=== PATIENT | female | born 1955 | race Caucasian/White ===

== ENCOUNTER → 2019-02-11 | Outpatient (CLI) | payer BC ==
[~2019-02-11] MED LIST: CALC-80 PO; EST.625T PO; HYDR-3454 PO; LISI20TA PO; OMEG1CAP51 PO; PHEN-452 PO
[2019-02-11 09:41] LABS: BASOPHILS # (AUTO) 0.1 10^3/uL (0.0-0.1); BASOPHILS % (AUTO) 1 % (0-10); EOSINOPHILS # (AUTO) 0.1 10^3/uL (0.0-0.3); EOSINOPHILS % (AUTO) 1 % (0-10); HEMATOCRIT 43 % (35-52); HEMOGLOBIN 14.5 G/DL (11.5-16.0); LYMPHOCYTES # (AUTO) 1.6 X 10^3 (1.0-4.0); LYMPHOCYTES % (AUTO) 23 % (12-44); MEAN CORPUSCULAR HEMOGLOBIN 31 PG (25-34); MEAN CORPUSCULAR HGB CONC 34 G/DL (32-36); MEAN CORPUSCULAR VOLUME 92 FL (80-99); MEAN PLATELET VOLUME 9.8 FL (7.4-10.4); MONOCYTES # (AUTO) 0.4 X 10^3 (0.0-1.0); MONOCYTES % (AUTO) 6 % (0-12); NEUTROPHILS # (AUTO) 4.6 X 10^3 (1.8-7.8); NEUTROPHILS % (AUTO) 68 % (42-75); PLATELET COUNT 303 10^3/uL (130-400); RED CELL DISTRIBUTION WIDTH 13.4 % (10.0-14.5); WHITE BLOOD COUNT 6.7 10^3/uL (4.3-11.0)
[2019-02-11 10:07] LABS: ALANINE AMINOTRANSFERASE 23 U/L (0-55); ALBUMIN 4.5 GM/DL (3.2-4.5); ALKALINE PHOSPHATASE 72 U/L (40-136); BILIRUBIN,TOTAL 0.5 MG/DL (0.1-1.0); BUN/CREATININE RATIO 18; CALCIUM 9.7 MG/DL (8.5-10.1); CARBON DIOXIDE 22 MMOL/L (21-32); CHLORIDE 111 MMOL/L (98-107); CHOLESTEROL 293 MG/DL (< 200); GFR ESTIMATED > 60; GLUCOSE 96 MG/DL (70-105); HDL CHOLESTEROL 65 MG/DL (40-60); POTASSIUM 4.1 MMOL/L (3.6-5.0); SODIUM 142 MMOL/L (135-145); TOTAL PROTEIN 7.2 GM/DL (6.4-8.2); TRIGLYCERIDES 118 MG/DL (<150); VLDL CHOLESTEROL 24 MG/DL (5-40)
--- NOTE | 2019-02-14 19:01 | Diagnostic Imaging Report ---
INDICATION: Routine screening. Comparison is made with prior mammograms from 05/25/2017 and 07/28/2015. 2-D and 3-D bilateral screening mammography was performed with Computer-Aided Detection (CAD) system. FINDINGS: Both breasts remain heterogeneously dense, limiting the sensitivity of mammography. No mass or malignant-appearing microcalcifications are seen. There are benign calcifications bilaterally. A marker clip in the upper-outer left breast is again noted. The axillae are unremarkable. IMPRESSION: No mammographic features suspicious for malignancy are identified. ACR BI-RADS Category 2: Benign findings. Result letter will be mailed to the patient. Note: At least 10% of breast cancer is not imaged by mammography. Dictated on workstation # [id number]
== END ==
LOC: RAD 09:01
PROVIDERS: ATTEND Internal Medicine
DX: Z12.31 Encounter for screening mammogram for malignant neoplasm of breast (principal); I10 Essential (primary) hypertension; R73.09 Other abnormal glucose
CPT/HCPCS: 36415; 77067; 80053; 80061; 83036; 84443; 85025

== ENCOUNTER → 2021-02-05 | Outpatient (CLI) | payer BC, MEDICARE | LOC: CARD 13:00 | PROVIDERS: ATTEND Nurse Practitioner Family | DX: I08.0 Rheumatic disorders of both mitral and aortic valves (principal) | CPT/HCPCS: 93306 ==

== ENCOUNTER 2021-11-15 05:32 | Outpatient (CLI) | payer BC ==
[~2021-11-15] VITALS: Ht 167.6 cm; Wt 73.8 kg
[2021-11-15] MEDS ORDERED: CETI10CA PO (11:15)
[2021-11-15] MEDS ORDERED: MULT-1136 PO (11:15)
[2021-11-15] MEDS ORDERED: ATOR40TA70 PO (11:15)
[2021-11-15] MEDS ORDERED: CALC-903 PO (11:15)
[2021-11-15] MEDS ORDERED: LOSA100T57 PO (11:15)
== END 2021-11-15 14:27 | disposition home or self-care (01) ==
LOC: PREOP 05:32
PROVIDERS: ATTEND Surgery
DX: Z01.818 Encounter for other preprocedural examination (principal)

== ENCOUNTER 2021-11-22 06:50 | Day surgery (SDC) | payer BC ==
[~2021-11-22] VITALS: Ht 167.6 cm; Wt 73.8 kg
[~2021-11-22 06:50] MED LIST changes: +ATOR40TA70 PO; +CALC-903 PO; +CETI10CA PO; +LOSA100T57 PO; +MULT-1136 PO
[2021-11-22] MEDS ORDERED: LACTATED RINGERS 1,000 ML IV STA (07:02)
[2021-11-22] MEDS ORDERED: MIDAZOLAM 2 MG/2 ML (VERSED) VIAL ONE (07:06)
[2021-11-22] MEDS ORDERED: PROPOFOL INJECTION 50 ML IV ONE (07:06)
[2021-11-22] MEDS ORDERED: LACTATED RINGERS 1,000 ML IV ONE (07:08)
[2021-11-22 07:18] VITALS: BP 135/74
[2021-11-22 08:45] VITALS: BP 86/48
[2021-11-22 08:50] VITALS: BP 95/51
[2021-11-22 09:20] VITALS: BP 127/78
--- NOTE | 2021-11-22 09:36 | Progress Note-Post Operative ---
Post-Operative Progess Note Surgeon (s)/Director Data Analytics (s) Surgeon ANN RUBIO DO Director Data Analytics: CHERYL Clark Pre-Operative Diagnosis screening colonoscopy Post-Operative Diagnosis polyp diverticula int hemorrhoid Procedure & Operative Findings Date of Procedure 11/22/21 Procedure Performed/Findings Colonoscopy with snare polypectomy PROCEDURE NOTE: After informed consent was obtained, the patient was brought to the endoscopy suite, placed in bed in left lateral decubitus position. She was administered IV sedation by the LUMBER SORTER MACHINE who then monitored her vitals the entire time, heart rate, blood pressure and pulse ox and the scope was inserted, pushed all the way to about 140 cm and pushed into the cecum. Took a picture of appendiceal orifice and then slowly withdrew the scope insufflating to look circumferentially at the riley; starting in the cecum and up the ascending colon. Just outside the cecum in the ascending colon found a polyp and elected to remove it completely with snare. Then continued up to the hepatic flexure, down the transverse colon to the splenic flexure. Into the descending colon where another polyp was seen and taken with snare. Continued down into the sigmoid where 2 more polyps were seen and removed. Finally into the rectal vault and retroflexed the scope. Took picture of the internal hemorrhoids. The patient tolerated the procedure. She was recovered in endoscopy suite. Anesthesia Type IV sedation by LUMBER SORTER MACHINE Estimated Blood Loss Estimated blood loss (mL): scant Specimens/Packing Specimens Removed asc polyp desc polyp sigmoid polyp x 2 ANN RUBIO DO Nov 22, 2021 09:36
--- NOTE | 2021-11-22 09:36 | Endoscopy Discharge Instruct ---
Endo Procedure/Findings Findings 1.: Polyp 2.: Diverticulosis 3.: Internal Hemorrhoids Discharge Instructions - Activity: You might feel a little sleepy until tomorrow. This is due to the medicine you received to relax you. Until tomorrow, you should: NOT drive a car, operate machinery or power tools. NOT drink any alcoholic beverages. NOT make any important decisions or sign importortant papers. Do not return to work until tomorrow, unless otherwise instructed. Resume previous activities tomorrow. Diet: Start by taking liquids. If you tolerate liquids, advance to solid food. 1.: Colonscopy in 3 years Notify Physician - If you experience excessive bleeding, unusual abdominal pain, fever, or chest pain, contact your doctor immediately. ANN RUBIO DO Nov 22, 2021 09:36
[2021-11-22 09:53] VITALS: BP 127/78
--- NOTE | 2021-11-22 10:26 | Anesthesia-General Post-Op ---
MAC Patient Condition Mental Status/LOC: Same as Preop Cardiovascular: Satisfactory Nausea/Vomiting: Absent Respiratory: Satisfactory Pain: Controlled Complications: Absent Post Op Complications Complications None Follow Up Care/Instructions Patient Instructions None needed. Anesthesiology Discharge Order Discharge Order Patient is doing well, no complaints, stable vital signs, no apparent adverse anesthesia problems. No complications reported per nursing. KELLY MEZA CRNA Nov 22, 2021 10:26
== END 2021-11-22 09:45 | disposition home or self-care (01) ==
LOC: ENDO 06:50
PROVIDERS: ATTEND Surgery
DX: Z12.11 Encounter for screening for malignant neoplasm of colon (principal); K63.5 Polyp of colon; D12.2 Benign neoplasm of ascending colon; D12.4 Benign neoplasm of descending colon; K57.30 Diverticulosis of large intestine without perforation or abscess without bleeding; K64.8 Other hemorrhoids; I10 Essential (primary) hypertension; E78.5 Hyperlipidemia, unspecified; F17.210 Nicotine dependence, cigarettes, uncomplicated; Z90.49 Acquired absence of other specified parts of digestive tract; Z79.899 Other long term (current) drug therapy; Z90.710 Acquired absence of both cervix and uterus

== ENCOUNTER → 2022-03-25 | Outpatient (CLI) | payer BC ==
--- NOTE | 2022-03-25 11:00 | Diagnostic Imaging Report ---
INDICATION: Right shoulder pain. Time of Exam: 8:45 AM Glenohumeral and acromioclavicular alignment are normal. Acromiohumeral space is normal. No fracture or dislocation is identified. IMPRESSION: No acute bony abnormality is detected. Dictated by: Dictated on workstation # [id number]
== END ==
LOC: RAD FS 08:30
PROVIDERS: ATTEND Nurse Practitioner
DX: M25.511 Pain in right shoulder (principal)
CPT/HCPCS: 73030